=== PATIENT | female | born 1990 | race Two or more races ===

== ENCOUNTER 2020-05-23 12:42 | Outpatient (REF) | payer OTHER, SELFPAY | END 2020-05-23 12:43 | disposition home or self-care (01) | LOC: HO.LAB 12:42 | PROVIDERS: Visit Provider Internal Medicine | DX: Z20.828 Contact with and (suspected) exposure to other viral communicable diseases (principal) | CPT/HCPCS: C9803; U0003 ==

== ENCOUNTER 2021-03-01 18:08 | Emergency (ER) | payer OTHER, SELFPAY ==
[2021-03-01 19:57] VITALS: BP 129/80; PULSE 98; RESP 20; TEMP 36.6; O2SAT 98; BMI 23.4
--- NOTE | 2021-03-01 21:13 | ED.SOB ---
HPI - SOB/Dyspnea General Chief Complaint: Dyspnea Stated Complaint: sob, covid + Time Seen by Provider: 03/01/21 20:50 Source: patient Mode of arrival: ambulatory Limitations: no limitations History of Present Illness HPI Narrative: 30-year-old female who presents emergency department for evaluation as , chills, cough, chest tightness shortness of breath. The patient states that she tested COVID positive approximately 9 days prior. Patient states that initially she was asymptomatic and she got tested because a friend that she was exposed to was COVID positive. The patient states that since she got her positive COVID-19 test, she has developed a persistent cough which is nonproductive. She states that she has had coughing, wheezing and chest tightness. She points to the anterior aspect her chest when asked to localize the tightness. She states the tightness is a heaviness which is 7/10 at its worst. She does have a history of asthma. She states that today was the worst day of her tightness, she also developed wheezing and used her sister's albuterol inhaler with some relief of her symptoms. Patient denied fever, chills, dyspnea on exertion. She denied diarrhea. Related Data Previous Rx's Medication Instructions Recorded albuterol sulfate 90 mcg/actuation 2 puff INHALATION Q4-6H PRN #8.5 g 03/01/21 aerosol inhaler azithromycin 250 mg tablet See Rx Instructions .ROUTE 03/01/21 (Zithromax Z-Drew) .COMPLEX #6 tab dexamethasone 6 mg tablet 6 mg PO DAILY 5 Days #5 tab 03/01/21 Allergies Allergy/AdvReac Type Severity Reaction Status Date / Time No Known Allergies Allergy Unverified 03/07/20 16:03 Review of Systems Review of Systems: Yes all other systems are reviewed and are negative [facility] Past Medical History [facility] Narrative: Past will history: Asthma. Past surgical history: None. Social history: She occasionally smokes cigarettes. The patient occasionally drinks alcohol. The patient states she occasionally smokes marijuana but does not use any other drugs. Social History Social History Advance Directives: No Advance Directives Information Provided: Yes Patient : No Physical Exam Vital Signs: Vital Signs: Last Vital Signs Temp 97.9 F 03/01/21 19:57 Pulse 98 03/01/21 19:57 Resp 20 03/01/21 19:57 BP 129/80 03/01/21 19:57 Pulse Ox 98 03/01/21 19:57 Body Mass Index 23.4 Const: General: cooperative and no acute distress Orientation/consciousness: oriented to person and oriented to place Limitations: no limitations HENMT: Head: Yes normal to inspection, Yes normocephalic and Yes atraumatic Ears: external ears normal General nose exam: Normal external nose present Face and sinus: Yes normal facial exam Mouth: Normal oral and palatal mucosa present Throat: Yes posterior oropharynx normal Eyes: General: appearance normal, both eyes and all related structures Pupils: Equal, round and reactive pupils present Neck: Neck: Yes normal visual inspection, Yes no lymphadenopathy, Yes trachea midline and Yes supple Chest: Chest palpation & inspection: normal inspection of the chest and normal palpation of entire chest wall Resp: Effort & Inspection: normal respiratory effort and able to speak in complete sentences Auscultation: no crackles, no rales, no rhonchi and wheezes (Mild diffuse inspiratory expiratory wheezing) Cardio: Rate: regular rate Rhythm: regular rhythm Heart sounds: S1 normal heart sound present, S2 normal heart sound present and no murmurs GI: Inspection: Yes normal to inspection Palpation (GI): Soft to palpation, nontender and no guarding Auscultation: normal bowel sounds : General: Yes no CVA tenderness Back/Spine/Pelvis: Back: no CVA tenderness Skin: General skin exam: no rashes or lesions noted Neuro: General: oriented to person and oriented to place Cranial nerves: Yes CN's II-XII intact bilaterally and Yes Equal, round and reactive pupils present Cognition (Neuro): normal cognition Motor exam (neuro): 5/5 motor strength present throughout Extrem: General: Yes normal to inspection Psych: Appearance: grossly normal Speech and movement: Normal speech and movement present Affect: normal affect Attitude: cooperative Thought process: Normal thought process present Thought content: Normal thought content present Course Course Course Narrative: 30-year-old female with history of asthma who tested COVID positive approximately 9 days prior presents emergency department for evaluation of cough, wheezing chest tightness/heaviness. The patient's vital signs revealed a slight elevation in a respiratory rate of 20. The patient had a normal O2 saturation of 98% on room air. This time I do not think that she has a significant COVID-19 pneumonia since she is not hypoxic. Given the patient's asthma, I will treat her with antibiotics and steroids. She was given dexamethasone 6 mg orally and azithromycin 500 mg orally. She was prescribed dexamethasone 6 mg once a day for 5 days and azithromycin Z-Drew. The patient was discharged home. The patient was given verbal and printed instructions prior to discharge. The patient was advised to follow-up with her PCP in 2 days and to return to the emergency department if her symptoms get worse or if she develops any new symptoms that are concerning to her. Discharge Plan Discharge Clinical Impression: COVID-19 virus infection Asthma with exacerbation Qualifiers: Asthma severity: mild Asthma persistence: intermittent Qualified Code(s): J45.21 - Mild intermittent asthma with (acute) exacerbation Patient Disposition: Home, Self-Care Instructions: Asthma (ED), COVID-19 (Coronavirus Disease 2019) (ED) Additional Instructions: Your oxygen saturation was 98% on room air which is reassuring With severe COVID-19 pneumonia, your oxygen saturation drops below 88% and that is when you need to be hospitalized for oxygen therapy and further treatment. Your wheezing which suggests that COVID is causing your asthma to flare up. Therefore I want to treat you with antibiotics and steroids. Take dexamethasone 6 mg once a day for 5 days. Your given a dose here in the emergency department. Take your next dose tomorrow evening. Take Zithromax (azithromycin) Z-Drew as prescribed. Your given a dose here in the emergency department. Take your next dose tomorrow evening. While you are taking dexamethasone do not take any other anti-inflammatory medications such as ibuprofen, Motrin, Advil, Aleve, or naproxen. Take Tylenol (acetaminophen) 500 mg pills, 2 pills every 4 to 6 hours as needed for pain. Use the albuterol inhaler 2 puffs every 4 hours as needed for shortness of breath or wheezing. Please return to the emergency department if your symptoms get worse or if you develop any symptoms that are concerning to you. Prescriptions: New albuterol sulfate 90 mcg/actuation HFA aerosol inhaler 2 puff inhalation Q4-6H PRN (Reason: shortness of breath or wheezing) Qty: 8.5 RF: 0 azithromycin [Zithromax Z-Drew] 250 mg tablet See Rx Instructions .ROUTE .COMPLEX Qty: 6 RF: 0 dexamethasone 6 mg tablet 6 mg PO DAILY 5 Days Qty: 5 RF: 0
[2021-03-01] MEDS: dexAMETHasone 6 MG TABLET PO (21:35)
[2021-03-01] MEDS: Azithromycin 500 MG TABLET PO (21:35)
[2021-03-01 21:37] VITALS: BP 131/80; PULSE 83; RESP 16; TEMP 36.7; O2SAT 98
== END 2021-03-01 21:42 | disposition home or self-care (01) ==
PROVIDERS: Emergency Provider Emergency Medicine Emergency Medical Services; PCP Internal Medicine
DX: J45.21 Mild intermittent asthma with (acute) exacerbation (principal); U07.1 COVID-19; F17.210 Nicotine dependence, cigarettes, uncomplicated; F12.90 Cannabis use, unspecified, uncomplicated
CPT/HCPCS: 99283; 99284; J8540

== ENCOUNTER 2022-09-28 11:05 | Emergency (ER) | payer OTHER, SELFPAY ==
--- NOTE | ~2022-09-28 | XR_ITS ---
EXAMINATION: XR CHEST CLINICAL INFORMATION: Cough and wheezing COMPARISON: None available. TECHNIQUE: 2 views of the chest were obtained. FINDINGS: No significant abnormality is noted involving the heart, lungs, mediastinum, bony thorax or soft tissues. XR/XR chest 2V IMPRESSION: Unremarkable chest examination.
[2022-09-28 11:08] VITALS: BP 120/78; PULSE 95; RESP 18; TEMP 36.6; O2SAT 96; BMI 26.6
--- NOTE | 2022-09-28 11:13 | ED.ASTHMA ---
HPI - Asthma General Chief Complaint: Asthma <GET Carney - Last Filed: 09/28/22 15:55> Stated Complaint: diff breathing <GET Carney - Last Filed: 09/28/22 15:55> Time Seen by Provider: 09/28/22 11:40 <GET Carney - Last Filed: 09/28/22 15:55> Source: patient <GET Villavicencio Last Filed: 09/28/22 13:25> Mode of arrival: ambulatory <GET Villavicencio Last Filed: 09/28/22 13:25> Limitations: no limitations <GET Villavicencio Last Filed: 09/28/22 13:25> History of Present Illness HPI Narrative: Patient is a 32 year old assigned female at with a history of asthma presenting to the emergency department today with an asthma exacerbation. Patient states that she felt like she had a sore throat 3 days ago then started to have progressively worsening wheezing and difficulty breathing. Reports she has tried her mother's albuterol inhaler at home with no relief. Patient denies any dizziness, lightheadedness, abdominal pain, nausea, vomiting, fever, chills, blurry vision, double vision, loss of vision, chest pain, back pain, night sweats, pain with urination, increased urinary frequency, increased urinary urgency, blood in her urine or stool, syncope or a near syncopal episode, recent trauma or falls, bowel incontinence, bladder incontinence, bowel retention, bladder retention, or any other complaints at this time. <GET Villavicencio - Last Filed: 09/28/22 13:25> MD complaint: asthma attack <GET Villavicencio - Last Filed: 09/28/22 13:25> Onset (ago): day(s) <GET Villavicencio Last Filed: 09/28/22 13:25> Severity: mild <GET Villavicencio Last Filed: 09/28/22 13:25> Context: none known <GET Villavicencio Last Filed: 09/28/22 13:25> Treatments Prior to Arrival: inhaled bronchodilator <GET Villavicencio Last Filed: 09/28/22 13:25> Related Data Home Medications: Previous Rx's Medication Instructions Recorded albuterol sulfate 90 mcg/actuation 2 puff inhalation Q4-6H PRN 03/01/21 aerosol inhaler shortness of breath or wheezing #8.5 grams azithromycin 250 mg tablet See Rx Instructions PO .COMPLEX #6 03/01/21 (Zithromax Z-Drew) tabs dexamethasone 6 mg tablet 6 mg PO DAILY 5 days #5 tabs 03/01/21 prednisone 20 mg tablet 20 mg PO DAILY 7 days #7 tabs 09/28/22 <GET Carney - Last Filed: 09/28/22 15:55> Allergies/Adverse Reactions: Allergies Allergy/AdvReac Type Severity Reaction Status Date / Time No Known Allergies Allergy Unverified 03/07/20 16:03 <GET Carney - Last Filed: 09/28/22 15:55> Review of Systems Review of Systems: Yes all other systems are reviewed and are negative <GET Villavicencio - Last Filed: 09/28/22 13:25> Constitutional: Constitutional: Reports as per HPI <GET Villavicencio Last Filed: 09/28/22 13:25> Eyes: Eyes: Reports no additional eye complaints and Denies loss of vision <GET Villavicencio - Last Filed: 09/28/22 13:25> ENT: Reports system reviewed and no additional complaints, except as documented and Denies dizziness <GET Villavicencio - Last Filed: 09/28/22 13:25> Cardiovascular: Cardiovascular: Reports no additional cardiovascular complaints <GET Villavicencio Last Filed: 09/28/22 13:25> Respiratory: Respiratory: Reports as per HPI and Reports wheezing <GET Villavicencio - Last Filed: 09/28/22 13:25> Gastrointestinal: Gastrointestinal: Reports no additional gastrointestinal complaints <GET Villavicencio Last Filed: 09/28/22 13:25> Genitourinary: Genitourinary: Denies hematuria, Denies urinary frequency, Denies dysuria, Denies urinary incontinence, Denies urinary hesitancy and Denies urinary urgency <GET Villavicencio Last Filed: 09/28/22 13:25> Musculoskeletal: Musculoskeletal: Reports no additional musculoskeletal complaints, Denies numbness and Denies tingling <GET Villavicencio Last Filed: 09/28/22 13:25> Neurologic: Denies dizziness, Denies loss of vision, Denies numbness and Denies tingling <GET Villavicencio - Last Filed: 09/28/22 13:25> Psychiatric: Psychiatric: Reports no additional psychiatric complaints <GET Villavicencio - Last Filed: 09/28/22 13:25> Endocrine: Endocrine: Reports no additional endocrine complaints <GET Villavicencio - Last Filed: 09/28/22 13:25> Hematologic/Lymphatic: Hematologic/Lymphatic: Reports no additional hematologic/lymphatic complaints <GET Villavicencio - Last Filed: 09/28/22 13:25> Allergic/Immunologic: Allergic/Immunologic: Reports no additional allergic/immunologic complaints and Reports wheezing <GET Villavicencio - Last Filed: 09/28/22 13:25> PMFSH Past Medical History Attestation statement: The following information was validated with the patient. <GET Villavicencio - Last Filed: 09/28/22 13:25> Source: old records reviewed and nursing notes reviewed <GET Villavicencio - Last Filed: 09/28/22 13:25> Social History Social History: Social History Advance Directives: No Advance Directives Information Provided: No <GET Carney - Last Filed: 09/28/22 15:55> Physical Exam Vital Signs: Vital Signs: Last Vital Signs Temp 98 F 09/28/22 11:08 Pulse 85 09/28/22 12:16 Resp 09/28/22 12:16 BP 120/78 09/28/22 11:08 Pulse Ox 96 09/28/22 11:08 O2 Del Method Room Air 09/28/22 11:08 BMI result Body Mass Index 26.6 <GET Carney - Last Filed: 09/28/22 15:55> Vital Signs: Last Vital Signs Temp 98 F 09/28/22 11:08 Pulse 85 09/28/22 12:16 Resp 09/28/22 12:16 BP 120/78 09/28/22 11:08 Pulse Ox 96 09/28/22 11:08 O2 Del Method Room Air 09/28/22 11:08 BMI result Body Mass Index 26.6 <GET Villavicencio - Last Filed: 09/28/22 13:25> Const: General: cooperative and in distress (inspiratory and expiratory wheezing ) respiratory; No diaphoretic, intoxicated appearing, lethargic or patient obtunded <GET Villavicencio - Last Filed: 09/28/22 13:25> Nutritional Appearance: well nourished <GET Villavicencio - Last Filed: 09/28/22 13:25> Orientation/consciousness: oriented to person, oriented to place, oriented to time, patient oriented x3, No patient obtunded and No lethargic <GET Villavicencio - Last Filed: 09/28/22 13:25> Limitations: no limitations <GET Villavicencio - Last Filed: 09/28/22 13:25> HEENT: Head: Yes normal to inspection <GET Villavicencio - Last Filed: 09/28/22 13:25> Ears: hearing grossly normal bilaterally <GET Villavicencio - Last Filed: 09/28/22 13:25> General nose exam: Normal external nose present <GET Villavicencio - Last Filed: 09/28/22 13:25> Face and sinus: Yes normal facial exam <GET Villavicencio - Last Filed: 09/28/22 13:25> Mouth: Normal oral and palatal mucosa present, no drooling and no muffled voice <GET Villavicencio - Last Filed: 09/28/22 13:25> Eyes: General: appearance normal, both eyes and all related structures <GET Villavicencio - Last Filed: 09/28/22 13:25> Periorbital: periorbital findings normal <GET Villavicencio - Last Filed: 09/28/22 13:25> Eyelids: Yes eyelids normal <GET Villavicencio - Last Filed: 09/28/22 13:25> Conjunctivae: conjunctivae normal <GET Villavicencio - Last Filed: 09/28/22 13:25> Pupils: Equal, round and reactive pupils present <GET Villavicencio - Last Filed: 09/28/22 13:25> EOM: EOMs intact bilaterally <Ama MendozaGET - Last Filed: 09/28/22 13:25> Neck: Neck: Yes normal visual inspection and Yes full ROM <Ama MendozaGET - Last Filed: 09/28/22 13:25> Chest: Chest palpation & inspection: normal inspection of the chest <Ama MendozaGET - Last Filed: 09/28/22 13:25> Resp: Effort & Inspection: able to speak in complete sentences and audible wheezes <Ama MendozaGET - Last Filed: 09/28/22 13:25> Auscultation: wheezes expiratory wheezes, inspiratory wheezes, lower bilaterally and upper bilaterally <Ama MendozaGET - Last Filed: 09/28/22 13:25> Cardio: Rate: regular rate <Ama Mendoza LA - Last Filed: 09/28/22 13:25> Rhythm: regular rhythm <Ama Mendoza LA - Last Filed: 09/28/22 13:25> GI: Inspection: Yes normal to inspection <Ama MendozaGET - Last Filed: 09/28/22 13:25> Neuro: General: oriented to person, oriented to place, oriented to time, patient oriented x3 and No patient obtunded <Ama MendozaGET - Last Filed: 09/28/22 13:25> Cranial nerves: Yes Equal, round and reactive pupils present <Ama Mendoza LA - Last Filed: 09/28/22 13:25> Cognition (Neuro): normal cognition <Ama MendozaGET - Last Filed: 09/28/22 13:25> Motor exam (neuro): 5/5 motor strength present throughout <Ama Mendoza GET - Last Filed: 09/28/22 13:25> Sensory Exam: Normal double simultaneous stimulation for sensation <Ama AlvarezGET coley - Last Filed: 09/28/22 13:25> Coordination: [id number] test normal <Ama MendozaGET - Last Filed: 09/28/22 13:25> Extrem: General: Yes normal to inspection and Yes full ROM <Ama AlvarezGET coley - Last Filed: 09/28/22 13:25> Psych: Appearance: grossly normal <GET Villavicencio - Last Filed: 09/28/22 13:25> Mental Status: mental status grossly normal <GET Villavicencio - Last Filed: 09/28/22 13:25> Affect: normal affect <GET Villavicencio - Last Filed: 09/28/22 13:25> Attitude: cooperative <GET Villavicencio - Last Filed: 09/28/22 13:25> Thought process: Normal thought process present <GET Villavicencio - Last Filed: 09/28/22 13:25> Thought content: Normal thought content present <GET Villavicencio - Last Filed: 09/28/22 13:25> Insight: Good insight present (Psych) <GET Villavicencio - Last Filed: 09/28/22 13:25> Course Course Course Narrative: RME: 32 yold female presents to the ED for coughing and wheezing for 2 days. pmh of asthma. denies pleurisy, chest pain, leg swelling, recent surgery, or recent travel. wheezing on auscultation. SARS and xray ordered of chest <GET Carney - Last Filed: 09/28/22 15:55> Medications Administered Discontinued Medications Generic Name Dose Route Start Last Admin Trade Name Freq PRN Reason Stop Dose Admin Albuterol Sulfate 10 mg 09/28/22 11:41 09/28/22 12:15 Albuterol Sulfate (0.083%) 2.5 Mg/3 Ml Vial.Neb INHALE 09/28/22 11:42 10 mg ONCE ONE Administration Albuterol Sulfate 2 puff 09/28/22 12:30 09/28/22 12:47 Albuterol Sulfate 90 Mcg 8 Gm Inhaler INHALE 09/28/22 12:31 2 puff ONCE ONE Administration Methylprednisolone Sodium Succinate 60 mg 09/28/22 11:41 09/28/22 12:09 Methylprednisolone Sod Succ 125 Mg/2 Ml Vial IM 09/28/22 11:42 60 mg ONCE ONE Administration <GET Carney - Last Filed: 09/28/22 15:55> Medications Administered Discontinued Medications Generic Name Dose Route Start Last Admin Trade Name Freq PRN Reason Stop Dose Admin Albuterol Sulfate 10 mg 09/28/22 11:41 09/28/22 12:15 Albuterol Sulfate (0.083%) 2.5 Mg/3 Ml Vial.Neb INHALE 09/28/22 11:42 10 mg ONCE ONE Administration Albuterol Sulfate 2 puff 09/28/22 12:30 09/28/22 12:47 Albuterol Sulfate 90 Mcg 8 Gm Inhaler INHALE 09/28/22 12:31 2 puff ONCE ONE Administration Methylprednisolone Sodium Succinate 60 mg 09/28/22 11:41 09/28/22 12:09 Methylprednisolone Sod Succ 125 Mg/2 Ml Vial IM 09/28/22 11:42 60 mg ONCE ONE Administration <GET Villavicencio - Last Filed: 09/28/22 13:25> Medical Decision Making Medical Decision Making [facility] Narrative: Patient is a 32 year old assigned female at with a history of asthma presenting to the emergency department today with an asthma exacerbation. Patient's physical exam showed inspiratory and expiratory wheezing in bilateral lung smith. Patient's chest XR showed no acute process. Patient's COVID/RSV/Influenza swab was negative. I explained my physical exam findings as well as all test results to the patient. I answered all questions asked by the patient. Patient received an albuterol treatment and IM Solu-medrol which she stated helped her symptoms significantly. I stressed the importance of the patient taking her medication as prescribed. I stressed the importance of the patient following up with her primary care provider. I stressed the importance of the patient returning to the emergency department immediately if her symptoms were to worsen or if she were to develop any dizziness, shortness of breath, difficulty breathing, chest pain, blurry vision, loss of vision, nausea, vomiting, abdominal pain, fever, chills, back pain, or any other complaints. Patient verbalized agreement and understanding with this treatment plan and discharge. <GET Villavicencio - Last Filed: 09/28/22 13:25> Differential Diagnosis Differential Diagnoses: The differential diagnosis associated with the presentation includes <GET Villavicencio - Last Filed: 09/28/22 13:25> asthma exacerbation <GET Villavicencio - Last Filed: 09/28/22 13:25> Lab Data [facility] Lab Attestation statement: I reviewed the patient's lab results. <GET Villavicencio - Last Filed: 09/28/22 13:25> Labs: Lab Results 09/28/22 Range/Units 11:38 Influenza Type A (PCR) NEGATIVE (Negative) Influenza Type B (PCR) NEGATIVE (Negative) RSV RNA Qual (PCR) NEGATIVE (Negative) SARS-CoV-2 RNA (RT-PCR) NEGATIVE (Negative) <GET Carney Last Filed: 09/28/22 15:55> Lab Results 09/28/22 Range/Units 11:38 Influenza Type A (PCR) NEGATIVE (Negative) Influenza Type B (PCR) NEGATIVE (Negative) RSV RNA Qual (PCR) NEGATIVE (Negative) SARS-CoV-2 RNA (RT-PCR) NEGATIVE (Negative) <GET Villavicencio Last Filed: 09/28/22 13:25> Independent Interpretation I performed an independent interpretation of an: Plain X-Ray <GET Villavicencio Last Filed: 09/28/22 13:25> Interpretation: My interpretation is in agreement with the radiologist's impression of this imaging study. EXAMINATION: XR CHEST CLINICAL INFORMATION: Cough and wheezing COMPARISON: None available. TECHNIQUE: 2 views of the chest were obtained. FINDINGS: No significant abnormality is noted involving the heart, lungs, mediastinum, bony thorax or soft tissues. XR/XR chest 2V IMPRESSION: Unremarkable chest examination. Dictated By: Brian Burton MD Signed By: Electronically signed by Brian Burton MD 09/28/22 1131 <GET Villavicencio Last Filed: 09/28/22 13:25> Discharge Plan Discharge Clinical Impression: Asthma <GET Carney Last Filed: 09/28/22 15:55> Patient Disposition: Home, Self-Care <GET Carney Last Filed: 09/28/22 15:55> Instructions: Asthma (DC) <GET Carney - Last Filed: 09/28/22 15:55> Additional Instructions: Follow up with your primary care provider. Return to the emergency department immediately if your symptoms worsen or if you develop any dizziness, shortness of breath, difficulty breathing, chest pain, blurry vision, loss of vision, nausea, vomiting, abdominal pain, fever, chills, back pain, or any other complaints. <GET Carney Last Filed: 09/28/22 15:55> Prescriptions: New prednisone 20 mg tablet 20 mg PO DAILY 7 Days Qty: 7 0RF No Action albuterol sulfate 90 mcg/actuation HFA aerosol inhaler 2 puff inhalation Q4-6H PRN (Reason: shortness of breath or wheezing) Qty: 8.5 0RF azithromycin [Zithromax Z-Drew] 250 mg tablet See Rx Instructions .ROUTE .COMPLEX Qty: 6 0RF Rx Instructions: take 500 mg today (day 1), then 250 mg for 4 days (days 2-5) dexamethasone 6 mg tablet 6 mg PO DAILY 5 Days Qty: 5 0RF <GET Carney Last Filed: 09/28/22 15:55> Referrals: [facility] [place] [facility] [Provider Group] (Call to establish and follow up with a primary care provider. If you already have a primary care provider, please follow up with them.) [facility] [place] [facility] [place] [Provider Group] (Call to establish and follow up with a primary care provider. If you already have a primary care provider, please follow up with them.) [facility] [place] [facility] [Provider Group] (Call to establish and follow up with a primary care provider. If you already have a primary care provider, please follow up with them.) <GET Carney - Last Filed: 09/28/22 15:55> Stand Alone Forms: Work/School Release <GET Carney Last Filed: 09/28/22 15:55> Interventions: ED Discharge Assessment Last Done: 09/28/22 12:43 <GET Carney Last Filed: 09/28/22 15:55> Discharge Date/Time: 04/10/23 12:50 <GET Carney - Last Filed: 09/28/22 15:55> Print Language: Maori <GET Carney - Last Filed: 09/28/22 15:55>
[2022-09-28] MEDS: methylPREDNISolone Sod Succ 125 MG/2 ML VIAL 60 MG IM (12:09)
[2022-09-28] MEDS: Albuterol Sulfate (0.083%) 2.5 MG/3 ML VIAL.NEB 10 MG INHALE (12:15)
[2022-09-28 12:16] VITALS: PULSE 85; RESP 19; O2SAT 98
[2022-09-28 12:34] LABS: Influenza A PCR NEGATIVE (Negative); Influenza B PCR NEGATIVE (Negative); Resp Syncy Virus RNA Qual PCR NEGATIVE (Negative); SARS COV2 PCR INHOUSE NEGATIVE (Negative)
[2022-09-28] MEDS: Albuterol Sulfate 90 MCG 8 GM INHALER 2 PUFF INHALE (12:47)
== END 2022-09-28 12:50 | disposition home or self-care (01) ==
PROVIDERS: Physician Assistant; Emergency Provider Emergency Medicine
DX: J45.909 Unspecified asthma, uncomplicated (principal); R05.9 Cough, unspecified; Z20.822 Contact with and (suspected) exposure to COVID-19; Z20.828 Contact with and (suspected) exposure to other viral communicable diseases
CPT/HCPCS: 0241U; 71046; 94640; 96372; 99283; 99284; J2930

== ENCOUNTER 2023-01-29 12:19 | Emergency (ER) | payer OTHER, SELFPAY ==
--- NOTE | ~2023-01-29 | CT_ITS ---
EXAMINATION: CT HEAD WITHOUT CONTRAST CLINICAL INFORMATION: Right-sided facial droop. COMPARISON: None. TECHNIQUE: Contiguous axial imaging was performed from the skull base to vertex without intravenous administration of contrast. Coronal and sagittal reformatted images are performed at the CT scanner. [This CT examination was performed using dose optimization techniques as appropriate, variously including the following: *Automated exposure control *Adjustment of mA and/or kV according to patient size (this includes techniques or standardized protocols for targeted exams where dose is matched to indication/reason for exam; i.e. extremities or head) *Use of iterative reconstruction technique] DLP: 657 mGy-cm. FINDINGS: There is no evidence of acute intracranial hemorrhage or territorial infarction. No abnormal mass-effect or midline shift is seen. Diehl to white matter differentiation is well preserved. No extra-axial fluid collections are identified. The ventricles are normal in size. There is no abnormal attenuation within the brain parenchyma. There is no osseous abnormality. The mastoid air cells and visualized portions of the paranasal sinuses are well-aerated. CT/CT head/brain wo IV con IMPRESSION: No acute intracranial pathology.
[2023-01-29 12:27] VITALS: BP 145/98; PULSE 93; RESP 16; TEMP 37.2; O2SAT 96; BMI 28.2
--- NOTE | 2023-01-29 12:30 | ED_ITS ---
HPI - Neuro Symptoms/Deficit General Chief Complaint: Neuro Symptoms/Deficit Stated Complaint: R Side Facial Droop ? [place] Palsy Time Seen by Provider: 01/29/23 18:04 Source: patient and family Mode of arrival: ambulatory Limitations: no limitations History of Present Illness HPI Narrative: 32yoF with a PMHx of cold sores who is presenting to the ER with right facial droop mainly on the aspect of the nose and the mouth/ lips that started last night. She reports this has never happened in the past. She denies any dizziness, change in vision, weakness anywhere else, chest pain or shortness of breath, recent falls or trauma, recent tick bites that she is aware of, recent falls, new medications or any illnesses that she is aware of. She reports she has not had a cold sore and approximately 1 year. Otherwise she denies any other symptoms complaints or concerns at this time. Onset (ago): hour(s) ( Since last night) Location: right face History of same: No Severity: mild Quality: weak, numb and constant Relieving factors: none Exacerbating factors: none On Anticoagulants: No Associated symptoms: denies other symptoms Treatments Prior to Arrival: none Related Data Previous Rx's Medication Instructions Recorded albuterol sulfate 90 mcg/actuation 2 puff inhalation Q4-6H PRN 03/01/21 aerosol inhaler shortness of breath or wheezing #8.5 grams azithromycin 250 mg tablet See Rx Instructions PO .COMPLEX #6 03/01/21 (Zithromax Z-Drew) tabs dexamethasone 6 mg tablet 6 mg PO DAILY 5 days #5 tabs 03/01/21 prednisone 20 mg tablet 20 mg PO DAILY 7 days #7 tabs 09/28/22 doxycycline hyclate 100 mg tablet 100 mg PO BID lyme disease 10 days 01/29/23 #20 tabs prednisone 20 mg tablet 60 mg PO DAILY inflammation 10 01/29/23 days #30 tabs valacyclovir 1 gram tablet 1,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 10 01/29/23 (Valtrex) days #30 tabs Allergies Allergy/AdvReac Type Severity Reaction Status Date / Time No Known Allergies Allergy Unverified 01/29/23 12:30 Review of Systems Review of Systems: Constitutional : No Fever, No Chills, No Night Sweats, No Fatigue, No Malaise ENT/Mouth : No Ear Pain, No Nasal Congestion, No Sinus Pain, No sore throat, No Rhinorrhea Eyes: No Eye Pain, No Swelling, No Redness, No Foreign Body, No Discharge, No Vision Changes Cardiovascular : No Chest Pain, No SOB, No Dyspnea on Exertion, No Orthopnea, No Palpitations Respiratory : No Cough, No Sputum, No Wheezing, No Dyspnea Gastrointestinal : No Nausea, No Vomiting, No Diarrhea, No Constipation, No abdominal Pain, No Hematochezia, No Melena Genitourinary : No Dysuria, No Urinary Frequency, No Urinary Incontinence, No Urgency, No Flank Pain Musculoskeletal : No joint pain, No Myalgias Skin : No lacerations Neuro : + right facial Focal weakness, No additional focal weakness, no general weakness, No Numbness, No Paresthesias, No Loss of Consciousness, No Dizziness, No Headache Yes all other systems are reviewed and are negative [facility] Past Medical History Attestation statement: The following information was validated with the patient. Source: old records reviewed, obtained from family and nursing notes reviewed Social History Social History Advance Directives: No Advance Directives Information Provided: No Physical Exam 2 Vital Signs: Vital Signs: Last Vital Signs Temp 99 F 01/29/23 12:27 Pulse 75 01/29/23 19:06 Resp 18 01/29/23 19:06 BP 122/84 01/29/23 19:06 Pulse Ox 97 01/29/23 19:06 O2 Del Method Room Air 01/29/23 19:06 BMI result Body Mass Index 28.2 Vital signs have been reviewed as normal and appeared to be correct. Blood pressure normal. Heart rate normal. Respiration rate normal. Temperature normal. Oxygen saturation normal. Appearance: Alert. Oriented X3. No acute distress. Head: Normal external exam. Normocephalic. Atraumatic. Able to rotate head bilaterally. Eyes: PERRLA. EOMI. No nystagmus noted. Conjunctiva and sclera normal. Eyelids normal. Corneal reflex normal. ENT: EAC normal. TM's Normal. Hearing normal. Pharynx normal. Uvula midline. tongue midline. Moist mucous membranes. No trismus noted. No drooling noted. No muffled voice noted. No nystagmus noted. Neck: Normal inspection. Neck supple. FROM. No adenopathy. Trachea midline. Thyroid Normal. No meningeal signs. No neck mass noted. CVS: Normal heart rate and rhythm. Heart sound normal. No murmurs noted. Pulses normal throughout. Respiratory: No respiratory distress. Painless inspiration. Breath sounds normal. No wheezes/rales/rhonchi noted. Chest nontender. No accessory muscle usage noted or decreased air movement noted. Abdomen: Soft and nontender. Bowel sounds normal in all 4 quadrants. No distention noted. No organomegaly noted. No visible injury noted. Back: No CVA tenderness. Full range of motion noted. Skin: Skin warm and dry. Normal skin color. Normal skin turgor. No rashes/lesions/lacerations noted. Extremities: No lower extremity edema. Extremities exhibit normal range of motion. Extremities nontender. Able to shrug shoulders bilaterally and keep up against resistance. Neuro: Oriented X 3. patient noted to have right facial weakness the forehead and lower face are affected. Spares the nasolabial folds.Unable to Wrinkle the forehead and some difficulty closing the right eye completely. No additional motor deficit. No sensory deficit. Reflexes normal. Moving all extremities. No additional focal motor deficits. Right facial weakness. Normal cognition. Speech normal. Gait normal. Strength 5/5 throughout. No pronator drift. No tremor noted. No fasciculations noted. No rigidity noted. Muscle tone normal throughout. No asterixis noted. Zokers-ya-uckt test normal. Heel to kay test normal. Tandem gait normal. Does not sway with eyes open. Romberg test negative. Rapid alternating movement upper extremity normal. Rapid alternating movement lower extremity normal. Hand drop from overhead Misses face. NIHSS score 0. Course Course Course Narrative: This is an RME: Additional HPI, ROS, PE not included below will be deferred to primary provider. 32 yo f presents w/ right sided facial droop noted it last night. Denies recent illness, new meds, bug bites. Hard time closing right eye Likely bells Plan- labs, tick pannel, CT scan patient request for peace of mind and to r/o Reevaluation(s) Reevaluation #1: This is a 32-year-old female with a past medical history of oral herpes/cold sorts who has not had an outbreak in approximately 1 year per patient who is presenting to the ER with right facial paresthesia and weakness that started last night. She denies any injuries, any confusion, dizziness, headaches any other weakness or any other symptoms complaints or concerns at this time. She denies any new medications or illnesses. She denies any rashes or tick bites that she is aware of. On exam she has weakness to the right side of the face and unable to wrinkle the right side of the forehead. 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 H&P not consistent with CVA or dissection at this time as patient does not have any other neuro deficits. She denies any recent neck adjustments or chiropractic visits. She denies any new medications. she denies any injuries or trauma. She denies history of hypercoagulation disorder. She is on the IUD that she believes is progesterone only not estrogen. Otherwise she does not take any other medications. She denies any drug usage. Labs were obtained and patient's white blood cell count at 12,000, chloride 110, anion gap 10, BUN 7, random glucose 162, serum quant negative for , UA positive for leukocytes although negative for nitrates patient could possibly have UTI although denies any dysuria therefore will wait culture. Lyme titer is pending. CT scan of brain within normal limits no acute processes. I discussed this case with Dr. Rogers he agrees that the patient appears to have Gupta palsy especially if the patient has a history of herpes. Therefore at this time will DC home with doxycycline to cover for possible Lyme disease, Valtrex to cover for herpes simplex and prednisone for inflammation with instructions return if any new or worsening symptoms. Patient mother at bedside understand agree this plan. Time: 19:22 Medical Decision Making Medical Decision Making [facility] Narrative: see course in detail Differential Diagnosis Differential Diagnoses: The differential diagnosis associated with the presentation includes see course in detail Admission/Observation Consideration of admission/observation: Escalation of care including admission/observation considered Lab Data [facility] Lab Attestation statement: I reviewed the patient's lab results. 01/29/23 13:08 01/29/23 13:08 Labs: Lab Results 01/29/23 01/29/23 01/29/23 Range/Units 13:08 13:08 13:08 WBC 12.4 H (4.8-10.8) X10*3/uL RBC 4.84 (4.20-5.50) X10*6/uL Hgb 14.8 (12.0-16.0) g/dl Hct 43.3 (37.0-47.0) % MCV 89.5 (80.0-98.0) fL MCH 30.6 (27.0-33.0) pg MCHC 34.2 (31.0-35.0) g/dl RDW 12.1 (11.0-16.0) % Plt Count 349 (160-400) X10*3/uL MPV 10.1 (9.4-12.3) fL Immature Gran % (Auto) 0.3 (0.0-0.4) % Neut % (Auto) 66.9 (45-73) % Lymph % (Auto) 22.3 (20-40) % [place] % (Auto) 6.5 (2-11) % Eos % (Auto) 3.4 (0-4) % Baso % (Auto) 0.6 (0-2) % Lymph # (Auto) 2.8 (1.2-4.9) X10*3/uL [place] # (Auto) 0.8 (0.1-1.2) X10*3/uL Eos # (Auto) 0.4 (0.0-0.4) X10*3/uL Baso # (Auto) 0.1 (0.0-0.2) X10*3/uL Abs Immat Gran (auto) 0.04 H (0.00-0.03) X10*3/uL Absolute Neuts (auto) 8.3 (2.0-8.3) x10*3/uL Absolute Nucleated RBC 0.000 (0.0-0.012) X10*3/uL Nucleated RBC % (auto) 0.0 (0.0-0.2) /100WBC Sodium 139 (135-145) mmol/L Potassium 3.9 (3.3-5.1) mmol/L Chloride 110 H (96-108) mmol/L Carbon Dioxide 23 (22-29) mmol/L Anion Gap 10 L (12-20) BUN 7 L (9-16) mg/dL Creatinine 0.71 (0.5-1.4) mg/dL Estim Creat Clear Calc 120.7 Estimated GFR > 60 Random Glucose 162 H (60-115) mg/dL Calcium 10.2 (8.4-10.2) mg/dL Magnesium 2.2 (1.6-2.6) mg/dL Total Bilirubin 0.4 (0.0-1.0) mg/dL AST 13 (5-31) U/L ALT 20 (0-31) U/L Alkaline Phosphatase 100 (39-117) U/L Total Protein 7.8 (6.5-8.0) g/dL Albumin 4.4 (3.5-5.0) g/dL Beta HCG, Quant < 2 mIU/mL Urine Color Urine Appearance Urine pH (5.0-9.0) Ur Specific [place] (1.005-1.025) Urine Protein (Neg-Trace) mg/dL Urine Glucose (UA) (Negative) mg/dL Urine Ketones (Negative) mg/dL Urine Blood (Negative) Urine Nitrite (Negative) Ur Leukocyte Esterase (Negative) Urine RBC (0-2) /HPF Urine WBC (0-5) /HPF Ur Squamous Epith Cells (0-2) /HPF Urine Bacteria (None Seen) Hyaline Casts (0-2) /LPF 01/29/23 Range/Units 13:08 WBC (4.8-10.8) X10*3/uL RBC (4.20-5.50) X10*6/uL Hgb (12.0-16.0) g/dl Hct (37.0-47.0) % MCV (80.0-98.0) fL MCH (27.0-33.0) pg MCHC (31.0-35.0) g/dl RDW (11.0-16.0) % Plt Count (160-400) X10*3/uL MPV (9.4-12.3) fL Immature Gran % (Auto) (0.0-0.4) % Neut % (Auto) (45-73) % Lymph % (Auto) (20-40) % [place] % (Auto) (2-11) % Eos % (Auto) (0-4) % Baso % (Auto) (0-2) % Lymph # (Auto) (1.2-4.9) X10*3/uL [place] # (Auto) (0.1-1.2) X10*3/uL Eos # (Auto) (0.0-0.4) X10*3/uL Baso # (Auto) (0.0-0.2) X10*3/uL Abs Immat Gran (auto) (0.00-0.03) X10*3/uL Absolute Neuts (auto) (2.0-8.3) x10*3/uL Absolute Nucleated RBC (0.0-0.012) X10*3/uL Nucleated RBC % (auto) (0.0-0.2) /100WBC Sodium (135-145) mmol/L Potassium (3.3-5.1) mmol/L Chloride (96-108) mmol/L Carbon Dioxide (22-29) mmol/L Anion Gap (12-20) BUN (9-16) mg/dL Creatinine (0.5-1.4) mg/dL Estim Creat Clear Calc Estimated GFR Random Glucose (60-115) mg/dL Calcium (8.4-10.2) mg/dL Magnesium (1.6-2.6) mg/dL Total Bilirubin (0.0-1.0) mg/dL AST (5-31) U/L ALT (0-31) U/L Alkaline Phosphatase (39-117) U/L Total Protein (6.5-8.0) g/dL Albumin (3.5-5.0) g/dL Beta HCG, Quant mIU/mL Urine Color Yellow Urine Appearance Cloudy Urine pH 6.5 (5.0-9.0) Ur Specific [place] 1.020 (1.005-1.025) Urine Protein Negative (Neg-Trace) mg/dL Urine Glucose (UA) Negative (Negative) mg/dL Urine Ketones Negative (Negative) mg/dL Urine Blood Negative (Negative) Urine Nitrite Negative (Negative) Ur Leukocyte Esterase Moderate (2+) H (Negative) Urine RBC 3-5 H (0-2) /HPF Urine WBC 6-10 H (0-5) /HPF Ur Squamous Epith Cells 11-20 (0-2) /HPF Urine Bacteria 3+ (None Seen) Hyaline Casts 0-2 (0-2) /LPF Independent Interpretation I performed an independent interpretation of an: CT Scan Interpretation: CT scan of brain without contrast reviewed by myself this is my independent interpretation no acute findings agreeable with radiologist report Radiology Impression Discussion of test interpretation with radiology: I have reviewed the radiologist's reading. Radiologist Impression: FINDINGS: There is no evidence of acute intracranial hemorrhage or territorial infarction. No abnormal mass-effect or midline shift is seen. Diehl to white matter differentiation is well preserved. No extra-axial fluid collections are identified. The ventricles are normal in size. There is no abnormal attenuation within the brain parenchyma. There is no osseous abnormality. The mastoid air cells and visualized portions of the paranasal sinuses are well-aerated. ? CT/CT head/brain wo IV con IMPRESSION: No acute intracranial pathology. Independent Historian Clinical information obtained from an independent historian. History obtained from or confirmed by: Parent External Record Review External record reviewed: Inpatient record, Office record, Outpatient record, Prior outpatient labs, Prior outpatient radiology, Primary care record and Outside ED record all prior labs/imaging / EKG and notes that are acceptable in our system reviewed by myself Prescription Management I considered prescription management with: Antiviral and Antibiotic Chronic Conditions Patient?s care impacted by: Other (cold sores) Social Determinants Patient?s care significantly limited by Social Determinants of Health including: Other Social Determinant of Health Critical Care Time Critical Care Time Critical Care Time: Yes Total Critical Care Time: 60 Attestation: I personally attest to this time spent taking care of the patient Discharge Plan 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 Patient Disposition: Home, Self-Care Instructions: Gupta Palsy (ED) Prescriptions: New doxycycline hyclate 100 mg tablet 100 mg PO BID 10 Days Qty: 20 0RF prednisone 20 mg tablet 60 mg PO DAILY 10 Days Qty: 30 0RF valacyclovir [Valtrex] 1 gram tablet 1,000 mg PO TID 10 Days Qty: 30 0RF No Action albuterol sulfate 90 mcg/actuation HFA aerosol inhaler 2 puff inhalation Q4-6H PRN (Reason: shortness of breath or wheezing) Qty: 8.5 0RF azithromycin [Zithromax Z-Drew] 250 mg tablet See Rx Instructions .ROUTE .COMPLEX Qty: 6 0RF Rx Instructions: take 500 mg today (day 1), then 250 mg for 4 days (days 2-5) dexamethasone 6 mg tablet 6 mg PO DAILY 5 Days Qty: 5 0RF prednisone 20 mg tablet 20 mg PO DAILY 7 Days Qty: 7 0RF Referrals: Physician,Unknown J [Primary Care Provider] - 1 day (Your PCP) Interventions: ED Discharge Assessment Last Done: 01/29/23 19:06 Discharge Date/Time: 01/29/23 19:07
[2023-01-29 13:18] LABS: MANUAL DIFF FLAG NO
[2023-01-29 13:20] LABS: Basophils Absolute Auto 0.1 X10*3/uL (0.0-0.2); Basophils Percent Auto 0.6 % (0-2); Eosinophils Absolute Auto 0.4 X10*3/uL (0.0-0.4); Eosinophils Percent Auto 3.4 % (0-4); Hematocrit 43.3 % (37.0-47.0); Hemoglobin 14.8 g/dl (12.0-16.0); Imm Gran Abs Auto 0.04 X10*3/uL (0.00-0.03); Imm Gran Pct Auto 0.3 % (0.0-0.4); Lymphocytes Absolute Auto 2.8 X10*3/uL (1.2-4.9); Lymphocytes Percent Auto 22.3 % (20-40); Mean Corpuscular HGB Conc 34.2 g/dl (31.0-35.0); Mean Corpuscular Hemoglobin 30.6 pg (27.0-33.0); Mean Corpuscular Volume 89.5 fL (80.0-98.0); Mean Platelet Volume 10.1 fL (9.4-12.3); Monocytes Absolute Auto 0.8 X10*3/uL (0.1-1.2); Monocytes Percent Auto 6.5 % (2-11); Neutrophils Absolute Auto 8.3 x10*3/uL (2.0-8.3); Neutrophils Percent Auto 66.9 % (45-73); Platelet Count 349 X10*3/uL (160-400); Red Blood Count 4.84 X10*6/uL (4.20-5.50); Red Cell Distribution Width 12.1 % (11.0-16.0); White Blood Count 12.4 X10*3/uL (4.8-10.8)
[2023-01-29 13:22] LABS: Appearance Urine Cloudy; Color Urine Yellow; Glucose Urine UA Negative (Negative); Leukocyte Esterase Urine Moderate (2+) (Negative); Nitrite Urine Negative (Negative); PH 6.5 (5.0-9.0); UMIC TRIGGER UACC YES; Urine Blood Negative (Negative); Urine Ketones Negative (Negative); Urine Protein Negative (Neg-Trace)
[2023-01-29 13:25] LABS: Bacteria Urine 3+ (None Seen); Hyaline Casts Urine 0-2 /LPF (0-2); UACC Culture Trigger YES
[2023-01-29 13:48] LABS: Alanine Aminotransferase 20 U/L (0-31); Albumin Level 4.4 g/dL (3.5-5.0); Alkaline Phosphatase 100 U/L (39-117); Anion Gap 10 (12-20); Aspartate Amino Transferase 13 U/L (5-31); Bilirubin Total 0.4 mg/dL (0.0-1.0); Blood Urea Nitrogen 7 mg/dL (9-16); Calcium 10.2 mg/dL (8.4-10.2); Carbon Dioxide 23 mmol/L (22-29); Chloride 110 mmol/L (96-108); Creatinine Clr Calc Pharmacy 120.7; Estimated Glomerular Filt Rate > 60; Glucose Random 162 mg/dL (60-115); Magnesium 2.2 mg/dL (1.6-2.6); Potassium 3.9 mmol/L (3.3-5.1); Sodium 139 mmol/L (135-145); Total Protein 7.8 g/dL (6.5-8.0)
[2023-01-29 14:03] LABS: HCG Quantitative < 2 mIU/mL
[2023-01-29 19:06] VITALS: BP 122/84; PULSE 75; RESP 18; O2SAT 97
[2023-02-01 17:48] LABS: Lyme Abs Screen <0.90 index
[2023-02-01 22:24] LABS: A. Phagocytphilium DNA,RT-PCR NOT DETECTED (NOT DETECTED); Babesia Microti DNA, RT-PCR NOT DETECTED (NOT DETECTED); Borrelia Miyamotoi,DNA RT-PCR NOT DETECTED (NOT DETECTED); E.Chaffeensis DNA RT-PCR NOT DETECTED (NOT DETECTED); Lyme(Borrelia ssp)DNA RT-PCR NOT DETECTED (NOT DETECTED)
== END 2023-01-29 19:07 | disposition home or self-care (01) ==
PROVIDERS: Physician Assistant; Emergency Provider Emergency Medicine
DX: G51.0 Bell's palsy (principal)
CPT/HCPCS: 36415; 70450; 80053; 81001; 83735; 84702; 85025; 86617; 86618; 87798; 87801; 99283; 99284

== ENCOUNTER 2023-08-04 13:17 | Emergency (ER) | payer OTHER, SELFPAY ==
[2023-08-04 13:41] VITALS: BP 135/85; PULSE 80; RESP 18; TEMP 36.4; O2SAT 97; BMI 22.6
--- NOTE | 2023-08-04 13:42 | ED_ITS ---
HPI - General Adult General Chief complaint: Urogenital-Female Stated complaint: UTI Time Seen by Provider: 08/04/23 14:31 History of Present Illness HPI narrative: Patient complains of burning with urination and frequency which started 2 days ago, no fever no flank pain no back pain no abdominal pain, no nausea no vomiting no other complaints Related Data Previous Rx's Medication Instructions Recorded albuterol sulfate 90 mcg/actuation 2 puff inhalation Q4-6H PRN 03/01/21 aerosol inhaler shortness of breath or wheezing #8.5 grams azithromycin 250 mg tablet See Rx Instructions PO .COMPLEX #6 03/01/21 (Zithromax Z-Drew) tabs dexamethasone 6 mg tablet 6 mg PO DAILY 5 days #5 tabs 03/01/21 prednisone 20 mg tablet 20 mg PO DAILY 7 days #7 tabs 09/28/22 doxycycline hyclate 100 mg tablet 100 mg PO BID lyme disease 10 days 01/29/23 #20 tabs prednisone 20 mg tablet 60 mg (3 x 20 mg) PO DAILY 01/29/23 inflammation 10 days #30 tabs valacyclovir 1 gram tablet 1,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 10 01/29/23 (Valtrex) days #30 tabs nitrofurantoin 100 mg PO Q12H 5 days #10 caps 08/04/23 monohydrate/macrocrystals 100 mg capsule (Macrobid) phenazopyridine 200 mg tablet 200 mg PO TID PRN Dysuria 6 doses 08/04/23 (Pyridium) #6 tabs Allergies Allergy/AdvReac Type Severity Reaction Status Date / Time No Known Allergies Allergy Verified 08/04/23 13:41 [facility] Past Medical History Source: nursing notes reviewed Physical Exam ED Vital Signs: Vital Signs - 24 hr 08/04/23 13:41 Temperature 97.5 F Pulse Rate 80 Respiratory Rate 18 Blood Pressure 135/85 Pulse Oximetry 97 Oxygen Delivery Method Room Air BMI result Body Mass Index 22.6 General appearance comfortable cooperative no distress Eyes anicteric no pallor Pharynx mucous membranes moist Neck is supple Abdomen soft nontender The back no tenderness no CVA tenderness Extremities no edema Course Course Course Narrative: Patient complains of 2 days of dysuria and frequency, no flank pain no vomiting no fever UA and test are ordered This is rapid medical exam and triage pending full evaluation and dispo by ER provider Urinalysis was positive with 2+ leukocyte esterase 20 RBC 50 WBC and 1+ bacteria, which is consistent with her symptoms and well-appearing patient is discharged with treatment for UTI Medical Decision Making Lab Data Labs: Lab Results 08/04/23 Range/Units 13:54 Urine Color Yellow Urine Appearance Cloudy Urine pH 6.0 (5.0-9.0) Ur Specific [place] 1.015 (1.005-1.025) Urine Protein Trace (Neg-Trace) mg/dL Urine Glucose (UA) Negative (Negative) mg/dL Urine Ketones Negative (Negative) mg/dL Urine Blood Moderate (2+) H (Negative) Urine Nitrite Negative (Negative) Ur Leukocyte Esterase Moderate (2+) H (Negative) Urine RBC >20 H (0-2) /HPF Urine WBC >50 H (0-5) /HPF Ur Squamous Epith Cells 6-10 (0-2) /HPF Urine Bacteria 1+ (None Seen) Hyaline Casts 0-2 (0-2) /LPF Urine Test NEGATIVE (NEGATIVE) Discharge Plan Discharge Clinical Impression: UTI (urinary tract infection) Patient Disposition: Home, Self-Care Additional Instructions: Testing confirmed that you have a urinary tract infection which is consistent with her symptoms Macrobid is the antibiotic, Pyridium often helps bladder pain Return any time for vomiting fever worsening pain any worse condition or any concerns Prescriptions: New nitrofurantoin monohyd/m-cryst [Macrobid] 100 mg capsule 100 mg PO Q12H 5 Days Qty: 10 0RF Rx Instructions: must administer with a meal/food phenazopyridine [Pyridium] 200 mg tablet 200 mg PO TID PRN (Reason: Dysuria) Qty: 6 0RF No Action albuterol sulfate 90 mcg/actuation HFA aerosol inhaler 2 puff inhalation Q4-6H PRN (Reason: shortness of breath or wheezing) Qty: 8.5 0RF azithromycin [Zithromax Z-Drew] 250 mg tablet See Rx Instructions .ROUTE .COMPLEX Qty: 6 0RF Rx Instructions: take 500 mg today (day 1), then 250 mg for 4 days (days 2-5) dexamethasone 6 mg tablet 6 mg PO DAILY 5 Days Qty: 5 0RF prednisone 20 mg tablet 20 mg PO DAILY 7 Days Qty: 7 0RF doxycycline hyclate 100 mg tablet 100 mg PO BID 10 Days Qty: 20 0RF prednisone 20 mg tablet 60 mg PO DAILY 10 Days Qty: 30 0RF valacyclovir [Valtrex] 1 gram tablet 1,000 mg PO TID 10 Days Qty: 30 0RF
[2023-08-04 14:03] LABS: Appearance Urine Cloudy; Color Urine Yellow; Glucose Urine UA Negative (Negative); Leukocyte Esterase Urine Moderate (2+) (Negative); Nitrite Urine Negative (Negative); Specific Gravity - Urine 1.015 (1.005-1.025); UMIC TRIGGER UACC YES; Urine Blood Moderate (2+) (Negative); Urine Ketones Negative (Negative); Urine Protein Trace mg/dL (Neg-Trace)
[2023-08-04 14:05] LABS: UPreg QC Valid YES; Urine Pregnancy NEGATIVE (NEGATIVE)
[2023-08-04 14:06] LABS: Bacteria Urine 1+ (None Seen); Hyaline Casts Urine 0-2 /LPF (0-2); RBC Urine >20 /HPF (0-2); UACC Culture Trigger YES; WBC Urine >50 /HPF (0-5)
[2023-08-04] MEDS: Nitrofurantoin Monohyd/M-Cryst 100 MG CAPSULE PO (14:37)
[2023-08-04] MEDS: Phenazopyridine HCL 200 MG TABLET PO (14:37)
== END 2023-08-04 14:40 | disposition home or self-care (01) ==
PROVIDERS: Physician Assistant Medical; Emergency Provider Emergency Medicine Emergency Medical Services
DX: N39.0 Urinary tract infection, site not specified (principal)
CPT/HCPCS: 81001; 81003; 81025; 87086; 99283

== ENCOUNTER 2024-09-26 19:03 | Emergency (ER) | payer OTHER, SELFPAY ==
--- NOTE | ~2024-09-26 | XR_ITS ---
CLINICAL HISTORY: cough 1 view chest x-ray. Comparison: CR/SR - XR CHEST 2V - 09/28/22 11:25 EDT Findings: No consolidation, pneumothorax, or effusion. Possible mild peribronchial cuffing centrally. Heart size normal. Impression: 1. Possible mild central peribronchial cuffing in the setting of a mild viral infection or an acute asthma exacerbation versus artifact related to overlying soft tissues. No focal pulmonary consolidation demonstrated. This document has been electronically signed by: Luis E Stanley MD on 09/26/2024 21:00:18
[2024-09-26 19:06] VITALS: BP 145/86; PULSE 106; RESP 20; TEMP 36.6; O2SAT 96; BMI 27.2
--- NOTE | 2024-09-26 19:08 | ED_ITS ---
HPI - General Adult General Chief complaint: Asthma Stated complaint: SOB/Asthma Time Seen by Provider: 09/26/24 20:31 Source: patient Limitations: no limitations History of Present Illness ED Provider: Evon Sierra PA-C HPI narrative: 34-year-old female with a history of asthma presents with cough and cold symptoms times 3-4 days. Associated dry repetitive cough, wheezing and sore throat. Denies fever. Denies sick contacts with similar symptoms. Patient has been using her home nebulizer treatment without relief from symptoms. Related Data Previous Rx's ?Medication ?Instructions ?Recorded albuterol sulfate 90 mcg/actuation 2 puff inhalation Q4-6H PRN 03/01/21 aerosol inhaler shortness of breath or wheezing #8.5 grams azithromycin 250 mg tablet See Rx Instructions PO .COMPLEX #6 03/01/21 (Zithromax Z-Drew) tabs dexamethasone 6 mg tablet 6 mg PO DAILY 5 days #5 tabs 03/01/21 prednisone 20 mg tablet 20 mg PO DAILY 7 days #7 tabs 09/28/22 doxycycline hyclate 100 mg tablet 100 mg PO BID lyme disease 10 days 01/29/23 #20 tabs prednisone 20 mg tablet 60 mg (3 x 20 mg) PO DAILY 01/29/23 inflammation 10 days #30 tabs valacyclovir 1 gram tablet 1,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 10 01/29/23 (Valtrex) days #30 tabs nitrofurantoin 100 mg PO Q12H 5 days #10 caps 08/04/23 monohydrate/macrocrystals 100 mg capsule (Macrobid) phenazopyridine 200 mg tablet 200 mg PO TID PRN Dysuria 6 doses 08/04/23 (Pyridium) #6 tabs albuterol sulfate 2.5 mg/3 mL 2.5 mg (3 mL) inhalation Q4-6H PRN 09/26/24 (0.083 %) solution for nebulization shortness of breath or wheezing #75 mL prednisone 20 mg tablet 40 mg (2 x 20 mg) PO DAILY #8 tabs 09/26/24 Allergies Allergy/AdvReac Type Severity Reaction Status Date / Time No Known Allergies Allergy Verified 09/26/24 19:08 Review of Systems Review of Systems: Yes all other systems are reviewed and are negative Constitutional: Constitutional: Denies fatigue and Denies fever(s) ENT: Reports sore throat Cardiovascular: Cardiovascular: Denies chest pain and Reports dyspnea Respiratory: Respiratory: Reports cough, Reports dyspnea and Reports wheezing Gastrointestinal: Gastrointestinal: Denies abdominal pain, Denies diarrhea, Denies nausea and Denies vomiting Endocrine: Endocrine: Denies fatigue Allergic/Immunologic: Allergic/Immunologic: Reports wheezing PMFSH Past Medical History Attestation statement: The following information was validated with the patient. Social History Social History Advance Directives: No Advance Directives Information Provided: No Do you have a plan to hurt others: No Plan Physical Exam ED Vital Signs: Vital Signs - 24 hr 09/26/24 19:06 Temperature 98 F Pulse Rate 106 H Respiratory Rate 20 Blood Pressure 145/86 H Pulse Oximetry 96 Oxygen Delivery Method Room Air BMI result Body Mass Index 27.2 Const Other: Alert Orientation/consciousness: patient oriented x3 Resp Other: Lungs clear to auscultation no wheezing Effort & Inspection: normal respiratory effort Cardio Other: Normal peripheral perfusion Skin Other: Warm dry no rash Neuro General: patient oriented x3, gait normal, no focal motor deficits and CN's II- XI intact bilaterally Psych Other: Cooperative Course Course Course Narrative: RME, this is a rapid medical exam performed by Adin Cramer please refer to primary provider for complete H&P- 34-year-old female with a history of asthma presents for evaluation of shortness of breath for the last few days. She also has a dry cough. Denies any fevers, chills. no improvement albuterol home. she does have some wheezing on exam. Plan for viral swabs and bronchodilator protocol Medications Administered Discontinued Medications Generic Name Dose Route Start Last Admin Trade Name Freq PRN Reason Stop Dose Admin Albuterol Sulfate 2.5 mg/ 0 mg 09/26/24 20:11 09/26/24 20:14 Albuterol/Ipratropium 3 ml INHALE 09/26/24 20:12 1 dose ONCE ONE Administration Prednisone 40 mg 09/26/24 20:37 09/26/24 20:50 Prednisone 20 Mg Tablet PO 09/26/24 20:38 40 mg ONCE ONE Administration Medical Decision Making Medical Decision Making [facility] Narrative: 34-year-old female with a history of asthma presents with cough and cold symptoms times 3-4 days. Associated dry repetitive cough, wheezing and sore throat. Denies fever. Denies sick contacts with similar symptoms. Patient has been using her home nebulizer treatment without relief from symptoms. Problem: Asthma History: Per patient I have considered the following differential diagnoses: Asthma, bronchitis, viral syndrome, pneumonia Plan: Viral panel and chest x-ray ordered, the patient already received an updraft, she has no wheezing her symptoms are improved. We will give steroid, refill her albuterol and discharged home I have independently reviewed the following tests: Labs: Viral panel negative Chest x-ray: No pneumonia, no pleural effusions, no pulmonary edema Lab Data Labs: Lab Results 09/26/24 Range/Units 19:18 Influenza Type A (PCR) NEGATIVE (Negative) Influenza Type B (PCR) NEGATIVE (Negative) RSV RNA Qual (PCR) NEGATIVE (Negative) SARS-CoV-2 RNA (RT-PCR) NEGATIVE (Negative) Discharge Plan Discharge Clinical Impression: Asthma with acute exacerbation Patient Disposition: Home, Self-Care Instructions: Asthma (ED) Additional Instructions: You are being treated for an asthma exacerbation. The viral panel was negative you were screened for influenza COVID and RSV. The chest x-ray is clear. Use your albuterol as directed, take the steroid as directed, you do not require any additional steroid until tomorrow. Follow up with your primary care provider as needed. Prescriptions: New prednisone 20 mg tablet 40 mg PO DAILY Qty: 8 0RF albuterol sulfate 2.5 mg /3 mL (0.083 %) solution for nebulization 2.5 mg inhalation Q4-6H PRN (Reason: shortness of breath or wheezing) Qty: 75 0RF No Action albuterol sulfate 90 mcg/actuation HFA aerosol inhaler 2 puff inhalation Q4-6H PRN (Reason: shortness of breath or wheezing) Qty: 8.5 0RF azithromycin [Zithromax Z-Drew] 250 mg tablet See Rx Instructions .ROUTE .COMPLEX Qty: 6 0RF Rx Instructions: take 500 mg today (day 1), then 250 mg for 4 days (days 2-5) dexamethasone 6 mg tablet 6 mg PO DAILY 5 Days Qty: 5 0RF prednisone 20 mg tablet 20 mg PO DAILY 7 Days Qty: 7 0RF doxycycline hyclate 100 mg tablet 100 mg PO BID 10 Days Qty: 20 0RF prednisone 20 mg tablet 60 mg PO DAILY 10 Days Qty: 30 0RF valacyclovir [Valtrex] 1 gram tablet 1,000 mg PO TID 10 Days Qty: 30 0RF nitrofurantoin monohyd/m-cryst [Macrobid] 100 mg capsule 100 mg PO Q12H 5 Days Qty: 10 0RF Rx Instructions: must administer with a meal/food phenazopyridine [Pyridium] 200 mg tablet 200 mg PO TID PRN (Reason: Dysuria) Qty: 6 0RF Stand Alone Forms: Work/School Release Print Language: Swedish
[2024-09-26 20:02] LABS: Influenza A PCR NEGATIVE (Negative); Influenza B PCR NEGATIVE (Negative); Resp Syncy Virus RNA Qual PCR NEGATIVE (Negative); SARS COV2 PCR INHOUSE NEGATIVE (Negative)
[2024-09-26] MEDS: Albuterol Sulfate 2.5 MG, Albuterol/Iprat 2.5/0.5MG 3 ML 3 ML INHALE (20:14)
[2024-09-26] MEDS: predniSONE 20 MG TABLET 40 MG PO (20:50)
[2024-09-26] MEDS: Lidocaine HCl Viscous 2 % 15 ML SOLUTION MUCOUS MEM (21:03)
[2024-09-26] MEDS: Magnesium Hydrox/Alum Hydrox 30 ML ORAL.SUSP PO (21:03)
[2024-09-26 21:10] VITALS: BP 145/86; PULSE 106; RESP 20; TEMP 36.6; O2SAT 96
== END 2024-09-26 21:10 | disposition home or self-care (01) ==
PROVIDERS: Physician Assistant; Emergency Provider Emergency Medicine; PCP Internal Medicine
DX: J45.901 Unspecified asthma with (acute) exacerbation (principal); Z03.818 Encounter for observation for suspected exposure to other biological agents ruled out
CPT/HCPCS: 0241U; 71045; 99282; 99284

== ENCOUNTER → 2024-09-26 20:37 | Outpatient (BNV) | payer OTHER, SELFPAY | PROVIDERS: Emergency Provider Emergency Medicine; PCP Internal Medicine; Visit Provider Radiology Diagnostic Radiology | DX: R06.02 Shortness of breath (principal); J45.909 Unspecified asthma, uncomplicated | CPT/HCPCS: 71045 ==

== ENCOUNTER → 2024-10-04 15:33 | Outpatient (BNVA) | payer SELFPAY | PROVIDERS: PCP Internal Medicine | DX: Z11.1 Encounter for screening for respiratory tuberculosis (principal) ==

== ENCOUNTER 2024-10-24 15:59 | Emergency (ER) | payer OTHER, SELFPAY ==
[2024-10-24 16:06] VITALS: BP 136/84; PULSE 86; RESP 20; TEMP 37; O2SAT 100; BMI 27.3
--- NOTE | 2024-10-24 16:15 | ED.GENADULT ---
HPI - General Adult General Chief complaint: General Medical Stated complaint: ?UTI Time Seen by Provider: 10/24/24 20:42 Source: patient, RN notes reviewed and old records reviewed Mode of arrival: ambulatory Limitations: no limitations History of Present Illness ED Provider: Shoaib HPI narrative: 34-year-old female with past medical history significant for asthma presents for evaluation of UTI symptoms. She reports 5 days of burning with urination and frequency. She reports some days are worse than others. Her symptoms are consistent with previous UTIs she has had pain She denies any vaginal bleeding or abnormal discharge. She does have a new sexual partner. Denies any fevers, chills, flank pain The patient did not present for shortness of breath but reports that she has a history of asthma and does not have her inhaler and she feels wheezy Related Data Previous Rx's ?Medication ?Instructions ?Recorded albuterol sulfate 90 mcg/actuation 2 puff inhalation Q4-6H PRN 03/01/21 aerosol inhaler shortness of breath or wheezing #8.5 grams azithromycin 250 mg tablet See Rx Instructions PO .COMPLEX #6 03/01/21 (Zithromax Z-Drew) tabs dexamethasone 6 mg tablet 6 mg PO DAILY 5 days #5 tabs 03/01/21 prednisone 20 mg tablet 20 mg PO DAILY 7 days #7 tabs 09/28/22 doxycycline hyclate 100 mg tablet 100 mg PO BID lyme disease 10 days 01/29/23 #20 tabs prednisone 20 mg tablet 60 mg (3 x 20 mg) PO DAILY 01/29/23 inflammation 10 days #30 tabs valacyclovir 1 gram tablet 1,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 10 01/29/23 (Valtrex) days #30 tabs nitrofurantoin 100 mg PO Q12H 5 days #10 caps 08/04/23 monohydrate/macrocrystals 100 mg capsule (Macrobid) phenazopyridine 200 mg tablet 200 mg PO TID PRN Dysuria 6 doses 08/04/23 (Pyridium) #6 tabs albuterol sulfate 2.5 mg/3 mL 2.5 mg (3 mL) inhalation Q4-6H PRN 09/26/24 (0.083 %) solution for nebulization shortness of breath or wheezing #75 mL prednisone 20 mg tablet 40 mg (2 x 20 mg) PO DAILY #8 tabs 09/26/24 cefuroxime axetil 250 mg tablet 250 mg PO Q12H #10 tabs 10/24/24 prednisone 20 mg tablet 40 mg (2 x 20 mg) PO DAILY #10 tabs 10/24/24 Allergies Allergy/AdvReac Type Severity Reaction Status Date / Time No Known Allergies Allergy Verified 10/24/24 16:07 Review of Systems Constitutional: Constitutional: Denies body ache(s), Denies chills and Denies fever(s) Eyes: Eyes: Denies blurry vision ENT: Denies vertigo and Denies dizziness Cardiovascular: Cardiovascular: Denies chest pain and Reports dyspnea Respiratory: Respiratory: Reports cough, Reports dyspnea and Reports wheezing Gastrointestinal: Gastrointestinal: Reports abdominal pain, Denies nausea and Denies vomiting Genitourinary: Genitourinary: Reports dysuria, Denies flank pain, Denies vaginal discharge, Denies vaginal dryness, Denies vaginal odor and Denies vaginal pruritus Musculoskeletal: Musculoskeletal: Denies back pain Integumentary/Breasts: Skin/Breast: Denies rash Neurologic: Denies vertigo and Denies dizziness Allergic/Immunologic: Allergic/Immunologic: Reports wheezing PMFSH Social History Social History Advance Directives: No Advance Directives Information Provided: No Physical Exam ED Vital Signs: Vital Signs - 24 hr 10/24/24 16:06 10/24/24 20:26 10/24/24 20:59 Temperature 98.6 F 97.5 F Pulse Rate 86 80 74 Respiratory Rate 20 20 18 Blood Pressure 136/84 137/117 H Pulse Oximetry 100 95 Oxygen Delivery Method Room Air Room Air 10/24/24 21:17 Temperature 98.8 F Pulse Rate 79 Respiratory Rate 20 Blood Pressure 147/86 H Pulse Oximetry 98 Oxygen Delivery Method Room Air BMI result Body Mass Index 27.3 Const General: healthy appearing, comfortable, no acute distress, alert and awake Nutritional Appearance: well nourished Orientation/consciousness: patient oriented x3 HENMT Head: Yes normocephalic and Yes atraumatic Eyes Eyelids: Yes eyelids normal Conjunctivae: conjunctivae normal Sclerae: sclerae normal Corneas: corneas normal Pupils: Equal, round and reactive pupils present EOM: EOMs intact bilaterally Neck Neck: Yes full ROM Resp Effort & Inspection: able to speak in complete sentences and not labored Auscultation: not clear to auscultation bilaterally and wheezes (Diffuse expiratory wheeze) GI Inspection: No distended Palpation (GI): Soft to palpation, not firm, nontender, no guarding and not rigid Skin General skin exam: elasticity normal Neuro General: patient oriented x3 Cranial nerves: Yes Equal, round and reactive pupils present and Yes Bilaterally intact EOM present Cognition (Neuro): normal cognition Extrem Other: Moving all extremities well without any obvious deformities Course Course Course Narrative: RME: 34-year-old female presents to ED for increased urinary frequency without any abdominal pain, flank pain, nausea, vomiting, fever, or chills. Patient also wants to be tested for STDs. Patient has no vaginal discharge of abnormal bleeding. UA U preg ordered/ labs ordered Medications Administered Discontinued Medications Generic Name Dose Route Start Last Admin Trade Name Freq PRN Reason Stop Dose Admin Cefuroxime Axetil 250 mg 10/24/24 21:01 10/24/24 21:11 Cefuroxime Axetil 250 Mg Tablet PO 10/24/24 21:02 250 mg ONCE ONE Administration Albuterol Sulfate 2.5 mg/ 0 mg 10/24/24 20:53 10/24/24 20:56 Albuterol/Ipratropium 3 ml INHALE 10/24/24 20:54 5 dose ONCE ONE Administration Prednisone 40 mg 10/24/24 21:01 10/24/24 21:11 Prednisone 20 Mg Tablet PO 10/24/24 21:02 40 mg ONCE ONE Administration Medical Decision Making Medical Decision Making [facility] Narrative: 34-year-old female presents for evaluation of UTI symptoms. A urinalysis does have positive bacteria, nitrites and esterase consistent with a UTI. She has no evidence of systemic infection. We will treat her with cefuroxime for UTI. CT NG test results are pending. She is not have any severe pelvic cramping, vaginal discharge to suggest PID. She is wheezy on exam, she is afebrile, this is consistent with a mild asthma exacerbation she will be treated with a bronchodilator protocol and prednisone. Differential Diagnosis Differential Diagnoses: The differential diagnosis associated with the presentation includes Acute asthma exacerbation UTI PID Urethritis Lab Data MDM Lab Attestation statement: I reviewed the patient's lab results. No leukocytosis or anemia. Normal platelet count. No electrolyte abnormalities warranting intervention. Positive UA 10/24/24 16:27 10/24/24 16:27 Labs: Lab Results 10/24/24 10/24/24 10/24/24 Range/Units 16:27 16:33 17:04 WBC 8.6 (4.8-10.8) X10*3/uL RBC 4.34 (4.20-5.50) X10*6/uL Hgb 13.5 (12.0-16.0) g/dl Hct 38.3 (37.0-47.0) % MCV 88.2 (80.0-98.0) fL MCH 31.1 (27.0-33.0) pg MCHC 35.2 H (31.0-35.0) g/dl RDW 12.2 (11.0-16.0) % Plt Count 360 (160-400) X10*3/uL MPV 10.3 (9.4-12.3) fL Immature Gran % (Auto) 0.1 (0.0-0.4) % Neut % (Auto) 48.6 (45-73) % Lymph % (Auto) 35.5 (20-40) % [place] % (Auto) 6.3 (2-11) % Eos % (Auto) 8.5 H (0-4) % Baso % (Auto) 1.0 (0-2) % Lymph # (Auto) 3.1 (1.2-4.9) X10*3/uL [place] # (Auto) 0.5 (0.1-1.2) X10*3/uL Eos # (Auto) 0.7 H (0.0-0.4) X10*3/uL Baso # (Auto) 0.1 (0.0-0.2) X10*3/uL Abs Immat Gran (auto) 0.01 (0.00-0.03) X10*3/uL Absolute Neuts (auto) 4.2 (2.0-8.3) x10*3/uL Absolute Nucleated RBC 0.000 (0.0-0.012) X10*3/uL Nucleated RBC % (auto) 0.0 (0.0-0.2) /100WBC Sodium 138 (135-145) mmol/L Potassium 3.7 (3.3-5.1) mmol/L Chloride 106 (96-108) mmol/L Carbon Dioxide 23 (22-29) mmol/L Anion Gap 13 (12-20) BUN 8 L (9-16) mg/dL Creatinine 0.67 (0.5-1.4) mg/dL Estim Creat Clear Calc 119.5 Estimated GFR > 60 Random Glucose 155 H (60-115) mg/dL Calcium 9.2 D (8.4-10.2) mg/dL Beta HCG, Quant < 2 mIU/mL Urine Color DK YELLOW Urine Appearance Clear Urine pH 6.5 (5.0-9.0) Ur Specific [place] 1.015 (1.005-1.025) Urine Protein 100 (2+) H (Neg-Trace) mg/dL Urine Glucose (UA) 250 H (Negative) mg/dL Urine Ketones Trace (Negative) mg/dL Urine Blood Negative (Negative) Urine Nitrite Positive H (Negative) Ur Leukocyte Esterase Small (1+) H (Negative) Urine RBC 0-2 (0-2) /HPF Urine WBC 0-5 (0-5) /HPF Ur Squamous Epith Cells 0-2 (0-2) /HPF Urine Bacteria 1+ (None Seen) Hyaline Casts 0-2 (0-2) /LPF Chlam trachomat DNA PCR NOT DETECTED (Not Detect.) N.gonorrhoeae DNA (PCR) NOT DETECTED (Not Detect.) Discharge Plan Discharge Clinical Impression: UTI (urinary tract infection), Asthma Patient Disposition: Home, Self-Care Instructions: Asthma (ED), Urinary Tract Infection in Women (ED) Additional Instructions: Your workup in the ER today was reassuring. This includes your blood work, your urine sample was consistent with a UTI We will call you with any positive results of the STD testing You may also follow up on the patient portal Take the antibiotic twice daily for 5 days. Use prednisone 40 mg daily for 5 days Follow-up with your primary doctor, return for new or worsening symptoms Prescriptions: New cefuroxime axetil 250 mg tablet 250 mg PO Q12H Qty: 10 0RF prednisone 20 mg tablet 40 mg PO DAILY Qty: 10 0RF No Action albuterol sulfate 90 mcg/actuation HFA aerosol inhaler 2 puff inhalation Q4-6H PRN (Reason: shortness of breath or wheezing) Qty: 8.5 0RF azithromycin [Zithromax Z-Drew] 250 mg tablet See Rx Instructions .ROUTE .COMPLEX Qty: 6 0RF Rx Instructions: take 500 mg today (day 1), then 250 mg for 4 days (days 2-5) dexamethasone 6 mg tablet 6 mg PO DAILY 5 Days Qty: 5 0RF prednisone 20 mg tablet 20 mg PO DAILY 7 Days Qty: 7 0RF doxycycline hyclate 100 mg tablet 100 mg PO BID 10 Days Qty: 20 0RF prednisone 20 mg tablet 60 mg PO DAILY 10 Days Qty: 30 0RF valacyclovir [Valtrex] 1 gram tablet 1,000 mg PO TID 10 Days Qty: 30 0RF nitrofurantoin monohyd/m-cryst [Macrobid] 100 mg capsule 100 mg PO Q12H 5 Days Qty: 10 0RF Rx Instructions: must administer with a meal/food phenazopyridine [Pyridium] 200 mg tablet 200 mg PO TID PRN (Reason: Dysuria) Qty: 6 0RF prednisone 20 mg tablet 40 mg PO DAILY Qty: 8 0RF albuterol sulfate 2.5 mg /3 mL (0.083 %) solution for nebulization 2.5 mg inhalation Q4-6H PRN (Reason: shortness of breath or wheezing) Qty: 75 0RF Interventions: ED Discharge Assessment Last Done: 10/24/24 21:17 Discharge Date/Time: 10/24/24 21:42 Print Language: [place] Island[place]
[2024-10-24 16:41] LABS: MANUAL DIFF FLAG NO
[2024-10-24 16:42] LABS: Basophils Absolute Auto 0.1 X10*3/uL (0.0-0.2); Eosinophils Absolute Auto 0.7 X10*3/uL (0.0-0.4); Eosinophils Percent Auto 8.5 % (0-4); Hematocrit 38.3 % (37.0-47.0); Hemoglobin 13.5 g/dl (12.0-16.0); Imm Gran Abs Auto 0.01 X10*3/uL (0.00-0.03); Imm Gran Pct Auto 0.1 % (0.0-0.4); Lymphocytes Absolute Auto 3.1 X10*3/uL (1.2-4.9); Lymphocytes Percent Auto 35.5 % (20-40); Mean Corpuscular HGB Conc 35.2 g/dl (31.0-35.0); Mean Corpuscular Hemoglobin 31.1 pg (27.0-33.0); Mean Corpuscular Volume 88.2 fL (80.0-98.0); Mean Platelet Volume 10.3 fL (9.4-12.3); Monocytes Absolute Auto 0.5 X10*3/uL (0.1-1.2); Monocytes Percent Auto 6.3 % (2-11); Neutrophils Absolute Auto 4.2 x10*3/uL (2.0-8.3); Neutrophils Percent Auto 48.6 % (45-73); Platelet Count 360 X10*3/uL (160-400); Red Blood Count 4.34 X10*6/uL (4.20-5.50); Red Cell Distribution Width 12.2 % (11.0-16.0); White Blood Count 8.6 X10*3/uL (4.8-10.8)
[2024-10-24 16:45] LABS: Appearance Urine Clear; Color Urine DK YELLOW; Glucose Urine UA 250 mg/dL (Negative); Leukocyte Esterase Urine Small (1+) (Negative); Nitrite Urine Positive (Negative); PH 6.5 (5.0-9.0); Specific Gravity - Urine 1.015 (1.005-1.025); UMIC TRIGGER UACC YES; Urine Blood Negative (Negative); Urine Ketones Trace mg/dL (Negative); Urine Protein 100 (2+) mg/dL (Neg-Trace)
[2024-10-24 16:53] LABS: RBC Urine 0-2 /HPF (0-2); Squamous Epithelial Cell Urine 0-2 /HPF (0-2); UACC Culture Trigger YES; WBC Urine 0-5 /HPF (0-5)
[2024-10-24 16:54] LABS: Bacteria Urine 1+ (None Seen); Hyaline Casts Urine 0-2 /LPF (0-2)
[2024-10-24 17:01] LABS: Anion Gap 13 (12-20); Blood Urea Nitrogen 8 mg/dL (9-16); Calcium 9.2 mg/dL (8.4-10.2); Carbon Dioxide 23 mmol/L (22-29); Chloride 106 mmol/L (96-108); Creatinine Clr Calc Pharmacy 119.5; Estimated Glomerular Filt Rate > 60; Glucose Random 155 mg/dL (60-115); Potassium 3.7 mmol/L (3.3-5.1); Sodium 138 mmol/L (135-145)
[2024-10-24 17:09] LABS: HCG Quantitative < 2 mIU/mL
[2024-10-24 20:26] VITALS: BP 137/117; PULSE 80; RESP 20; TEMP 36.4; O2SAT 95
[2024-10-24] MEDS: Albuterol Sulfate 2.5 MG, Albuterol/Iprat 2.5/0.5MG 3 ML 3 ML INHALE (20:56)
[2024-10-24 20:59] VITALS: PULSE 74; RESP 18; O2SAT 96
[2024-10-24] MEDS: cefuroxime axetiL 250 MG TABLET PO (21:11)
[2024-10-24] MEDS: predniSONE 20 MG TABLET 40 MG PO (21:11)
[2024-10-24 21:17] VITALS: BP 147/86; PULSE 79; RESP 20; TEMP 37.1; O2SAT 98
[2024-10-25 07:23] LABS: CT PCR NOT DETECTED (Not Detect.); NG PCR NOT DETECTED (Not Detect.)
== END 2024-10-24 21:42 | disposition home or self-care (01) ==
PROVIDERS: Physician Assistant; Emergency Provider Internal Medicine; PCP Internal Medicine
DX: N39.0 Urinary tract infection, site not specified (principal); J45.909 Unspecified asthma, uncomplicated; Z20.2 Contact with and (suspected) exposure to infections with a predominantly sexual mode of transmission; Z79.899 Other long term (current) drug therapy
CPT/HCPCS: 36415; 80048; 81001; 84702; 85025; 87086; 87088; 87186; 87491; 87591; 94640; 99284